=== PATIENT | female | born 1965 | race African-American/Black ===

== ENCOUNTER 2017-03-06 21:03 | Emergency (ER) | payer MEDICAID ==
[~2017-03-06] VITALS: Ht 162.6 cm; Wt 109.1 kg
[2017-03-06] MEDS ORDERED: ZONI100 PO (21:23)
[2017-03-06] MEDS ORDERED: SOLI5 PO (21:23)
[2017-03-06] MEDS ORDERED: FEXO-59 PO (21:23)
[2017-03-06] MEDS ORDERED: FLUT16H NASAL (21:23)
[2017-03-06] MEDS ORDERED: FLUO-191 PO (21:23)
[2017-03-06] MEDS ORDERED: FERR-89 PO (21:23)
[2017-03-06] MEDS ORDERED: AMLO-511 PO (21:23)
[2017-03-06] MEDS ORDERED: LOSA50TA37 PO (21:23)
[2017-03-06] MEDS ORDERED: ASCO500 PO (21:23)
[2017-03-06] MEDS ORDERED: OMEP20 PO (21:23)
[2017-03-06] MEDS ORDERED: ERGO500014 PO (21:23)
[2017-03-06] MEDS ORDERED: ASPI81 PO (21:23)
[2017-03-06] MEDS ORDERED: CYAN250010 PEG (21:23)
[2017-03-07 01:34] VITALS: BP 130/88
== END 2017-03-07 01:35 | disposition home or self-care (01) ==
LOC: EMS 21:05
DX: B34.9 Viral infection, unspecified (principal); J45.909 Unspecified asthma, uncomplicated; I10 Essential (primary) hypertension; Z88.0 Allergy status to penicillin; Z88.8 Allergy status to other drugs, medicaments and biological substances
CPT/HCPCS: 99283

== ENCOUNTER 2018-07-14 08:28 | Emergency (ER) | payer MEDICAID ==
[~2018-07-14] VITALS: Ht 157.5 cm; Wt 106.8 kg
[~2018-07-14 08:28] MED LIST: AMLO-511 PO; ASCO500 PO; ASPI81 PO; CYAN500 PO; ERGO500014 PO; FERR-89 PO; FEXO-59 PO; FLUO-191 PO; FLUT16H NASAL; LEVE500T53 PO; LOSA50TA64 PO; OMEP20 PO; TRAZ-252 PO
[2018-07-14] MEDS ORDERED: PROCHLORPERAZINE EDISYLATE 5 MG/ML 2 ML VIAL IVP ONE (10:15)
[2018-07-14] MEDS ORDERED: DiphenhydrAMINE HCL 50 MG/ML VIAL IVP ONE (10:15)
[2018-07-14] MEDS ORDERED: KETOROLAC TROMETHAMINE 30 MG/ML VIAL IVP ONE (10:15)
[2018-07-14 12:25] VITALS: BP 138/77
== END 2018-07-14 12:30 | disposition home or self-care (01) ==
LOC: EMS 08:29
DX: G43.909 Migraine, unspecified, not intractable, without status migrainosus (principal); I10 Essential (primary) hypertension; F32.9 Major depressive disorder, single episode, unspecified; J45.909 Unspecified asthma, uncomplicated; Z86.73 Personal history of transient ischemic attack (TIA), and cerebral infarction without residual deficits; Z79.82 Long term (current) use of aspirin; Z79.899 Other long term (current) drug therapy; Z88.0 Allergy status to penicillin; Z88.8 Allergy status to other drugs, medicaments and biological substances
CPT/HCPCS: 96374; 96375; 99283; J0780; J1200; J1885